=== PATIENT | female | born 1930 | race Caucasian/White ===

== ENCOUNTER → 2017-08-31 | Outpatient (CLI) | payer MEDICARE ==
[~2017-08-31] MED LIST: ACCUPRIL20 MG PO; ALLEGRA PO; ASPIR 8181 MG PO; ATIVAN0.5 MG PO; AZOR 5-40 MG T1 EACH PO; CALCIUM PO; COLACE100 M1 PO; DOXAZOSIN MESYLA1 MG PO; DULCOLAX SUPP10 MG RC; ELLURA PO; FISH OIL 1,2001 EACH PO; HYDRALAZINE HCL25 MG PO; IBUPROFEN PO; LISINOPRIL10 MG PO; MAGNESIUM PO; MAGNESIUM100 MG PO; MILK OF MAGNESIA PO; NAPROSYN500 MG PO; NIACIN PO; NIACIN500 M2 PO; NORVASC5 MG PO; PANTOPRAZOLE SO40 MG PO; QUINAPRIL HCL20 MG PO; STRESS TABS PO; TYLENOL PO; VITAMIN B-12 PO; VITAMIN D PO; ZEBETA10 MG PO; ZOVIRAX200 MG PO; [UNRECOGNIZED DRUG - OTHER] PO
--- NOTE | 2017-08-31 20:29 | Diagnostic Imaging Report ---
History: Low back pain radiating along left lower extremity. Comparison studies: MRI of lumbar spine from 06/06/2014. Technique: Sagittal , coronal and axial T2 , sagittal T1 and IR, axial T2 FS and PD of the lumbar spine. Coronal T1, T2, STIR, sagittal T2 fat sat and axial T1 and T2 fat-sat of the sacrum. Intravenous contrast: None Findings: Number of lumbar vertebral bodies: 5. Alignment: Normal lordosis. No scoliosis. Soft tissues: No T2 hyperintense inflammatory changes. Paraspinal muscles: Fatty atrophy of posterior paraspinal muscles at level L5 and S1. Lower thoracic cord: Normal in signal and morphology. The tip of the conus is at L1 . Cauda equina: No masses. No arachnoiditis. Vertebrae: No compression fractures, infection or neoplasm. Degenerative changes: L1-L2: Mild degenerative disc disease. Disc bulge without canal or foraminal stenosis L2-L3: Mild degenerative disc disease with decreased T2 signal. Disc bulge without canal or foraminal stenosis. L3-L4: Mild degenerative disc disease. Disc bulge in combination with thickened ligamentum flavum effaces thecal sac without significant canal stenosis. Mild left foraminal stenosis. L4-L5: Mild degenerative disc disease with decreased T2 signal. Disc bulge with superimposed 3 mm left foraminal disc extrusion with 3 mm superior migration contacts left L4 nerve root (image 27, series 6; image 11, series 3 and image 15, series 9). No canal stenosis. Mild bilateral foraminal stenosis. Mild bilateral facet arthrosis. L5-S1: Mild degenerative disc disease. Disc bulge without canal stenosis. No foraminal stenosis. Sacrum: Normal signal intensity, without evidence of fracture or mass. Sacroiliac joints: Minimal degenerative changes. IMPRESSION: 1. Mild interval progression of lumbar spondylosis without canal stenosis. 2. Multilevel foraminal stenosis, particularly mild left at L3-L4 and mild bilateral at L4-L5. Left foraminal disc extrusion contacts left L4 nerve root at level L4-L5. 3. Multilevel mild degenerative disc disease. Mild bilateral facet arthrosis at L4-L5. Signed by: Dr. Roshni Gibbs M.D. on 08/31/2017 8:25 PM
== END ==
LOC: MRI 18:00
PROVIDERS: ATTEND Internal Medicine
DX: M51.27 Other intervertebral disc displacement, lumbosacral region (principal)
CPT/HCPCS: 72148; 72195